=== PATIENT | male | born 1995 | race Caucasian/White ===

== ENCOUNTER 2020-09-26 22:17 | Emergency (ER) | payer OTHER ==
[2020-09-26] MEDS ORDERED: Ondansetron 4 MG/2 ML SDV IVPUSH ONE (22:25)
[2020-09-26] MEDS ORDERED: Sodium Chloride 0.9% 1,000 ML IV ONE ×2 (22:27→23:36)
[2020-09-26] MEDS ORDERED: Acetaminophen 500 MG Tab PO ONE (22:56)
[2020-09-26 23:21] LABS: ANION GAP 15.8 mmol/L (5-15); CHLORIDE,CL 103 mmol/L (98-107); SODIUM,NA 137 mmol/L (136-145)
--- NOTE | 2020-09-27 00:06 | EDM.PDOC ---
ED HPI GENERAL MEDICAL PROBLEM - General Chief Complaint: Abdominal Pain Stated Complaint: N/V, abd pain, muscle aches Time Seen by Provider: 09/26/20 22:40 Source of Information: Reports: Patient History Limitations: Reports: No Limitations - History of Present Illness INITIAL COMMENTS - FREE TEXT/NARRATIVE: 25-year-old male presents to the emergency room with complaints of abdominal pain and diarrhea. His symptoms began a Wednesday night when he started to experience some mild abdominal pain. Wednesday he was experiencing fever and chills with temperature of 101.5. He stayed home from work today and has been taking ibuprofen 400 mg every 4 hours. He reports diarrhea about every 30 minutes today he had one episode of vomiting and felt a nauseous at 7 PM tonight. He has not had appetite he tried some applesauce earlier this evening which he vomited. He describes his abdominal pain is generalized over the belly and sharp pain that comes and goes lasting between 30 seconds and 5 minutes. He has had a previous appendectomy in 2016. He is otherwise a very healthy. He denies any headaches, cough or respiratory complaints. 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 400mg Q4 hrs) Abdomen Pain Score (Numeric/FACES): 8 - Related Data Allergies Allergy/AdvReac Type Severity Reaction Status Date / Time shellfish derived Allergy Swelling Verified 09/26/20 22:20 shrimp Allergy Swelling Verified 09/27/20 00:07 Home Meds: Home Meds Ibuprofen [Motrin] 400 mg PO QID PRN 09/26/20 [History] Past Medical History HEENT History: Reports: Impaired Vision - Infectious Disease History Infectious Disease History: Reports: Chicken Pox, Influenza, Novel Coronavirus - Past Surgical History GI Surgical History: Reports: Appendectomy Social & Family History - Tobacco Use Tobacco Use Status *Q: Never Tobacco User Second Hand Smoke Exposure: No - Caffeine Use Caffeine Use: Reports: Coffee, Soda, Tea - Recreational Drug Use Recreational Drug Use: No ED ROS GENERAL - Review of Systems Review Of Systems: See Below Constitutional: Reports: Fever, Chills, Decreased Appetite HEENT: Reports: No Symptoms Respiratory: Reports: No Symptoms Cardiovascular: Reports: No Symptoms Endocrine: Reports: No Symptoms GI/Abdominal: Reports: Abdominal Pain, Diarrhea, Flatus, Nausea, Vomiting : Reports: No Symptoms Musculoskeletal: Reports: No Symptoms Skin: Reports: No Symptoms Neurological: Reports: No Symptoms Psychiatric: Reports: No Symptoms Hematologic/Lymphatic: Reports: No Symptoms Immunologic: Reports: No Symptoms ED EXAM, GI/ABD - Physical Exam Exam: See Below Exam Limited By: No Limitations General Appearance: Alert, WD/WN, Mild Distress, Obese Eyes: Bilateral: Normal Appearance, EOMI Ears: Normal External Exam, Normal Canal, Hearing Grossly Normal, Normal TMs Nose: Normal Inspection, Normal Mucosa, No Blood Throat/Mouth: Normal Inspection, Normal Lips, Normal Teeth, Normal Gums, Normal Oropharynx, Normal Voice, No Airway Compromise Head: Atraumatic, Normocephalic Neck: Normal Inspection, Supple, Non-Tender, Full Range of Motion Respiratory/Chest: No Respiratory Distress, Lungs Clear, Normal Breath Sounds, No Accessory Muscle Use, Chest Non-Tender Cardiovascular: Normal Peripheral Pulses, Regular Rate, Rhythm, No Edema, No Murmur GI/Abdominal Exam: Normal Bowel Sounds, Soft, Non-Tender. No: Distended, Guarding, Rigid, Rebound Back Exam: Normal Inspection, Full Range of Motion. No: CVA Tenderness (L), CVA Tenderness (R) Extremities: Normal Inspection, Normal Range of Motion, Non-Tender, No Pedal Edema, Normal Capillary Refill Neurological: Alert, Oriented, CN II-XII Intact, Normal Cognition, No Motor/Sensory Deficits Psychiatric: Normal Affect, Normal Mood Skin Exam: Warm, Intact, Normal Color, No Rash Lymphatic: No Adenopathy Course - Vital Signs Last Recorded V/S: Last Vital Signs Temp 97.0 F 09/27/20 01:22 Pulse 94 09/27/20 01:00 Resp 24 H 09/26/20 22:45 BP 100/46 L 09/27/20 01:22 Pulse Ox 96 09/27/20 01:00 - Orders/Labs/Meds Labs: Laboratory Tests 09/26/20 09/26/20 09/26/20 Range/Units 22:35 22:35 22:35 WBC 8.18 (5.00-10.00) 10^3/uL RBC 5.30 (4.50-6.00) 10^6/uL Hgb 15.3 (13.0-17.0) g/dL Hct 44.6 (40.0-52.0) % MCV 84.2 (82.0-92.0) fL MCH 28.9 (27.0-31.0) pg MCHC 34.3 (32.0-36.0) g/dL RDW 13.4 (11.5-14.5) % Plt Count 195 (150-400) 10^3/uL MPV 9.7 (7.4-10.4) fL Add Manual Diff Yes Neutrophils % (Manual) 77 H (50-70) % Band Neutrophils % 9 (4-12) % Monocytes % (Manual) 14 H (2-8) % Absolute Neutrophils 6.30 Band Neutrophils # 0.74 Monocytes # (Manual) 1.15 Sodium 137 (136-145) mmol/L Potassium 3.2 L (3.5-5.1) mmol/L Chloride 103 (98-107) mmol/L Carbon Dioxide 21.4 (21.0-32.0) mmol/L Anion Gap 15.8 H (5-15) mmol/L BUN 18 (7-18) mg/dL Creatinine 1.22 H (0.51-1.17) mg/dL Est Cr Clr Drug Dosing 97.23 mL/min Estimated GFR (MDRD) > 60 mL/min Glucose 123 (70-140) mg/dL Calcium 8.4 L (8.7-10.3) mg/dL Total Bilirubin 1.7 H (0.2-1.0) mg/dL Direct Bilirubin 0.4 H (0.0-0.2) mg/dL Indirect Bilirubin 1.3 mg/dL AST 68 H (15-37) U/L ALT 89 H (14-63) U/L Alkaline Phosphatase 64 (46-116) U/L Total Protein 7.7 (6.4-8.2) g/dL Albumin 4.03 (3.40-5.00) g/dL Globulin 3.67 Albumin/Globulin Ratio 1.09 Specimen Type Urine Color (YELLOW) Urine Appearance (CLEAR) Urine pH (5.0-9.0) Ur Specific [place] (1.005-1.030) Urine Protein (NEGATIVE) mg/dL Urine Glucose (UA) (NEGATIVE) mg/dL Urine Ketones (NEGATIVE) mg/dL Urine Occult Blood (NEGATIVE) Urine Nitrite (NEGATIVE) Urine Bilirubin (NEGATIVE) Urine Urobilinogen (0.2-1.0) E.U./dL Ur Leukocyte Esterase (NEGATIVE) Urine RBC (0-5) /HPF Urine WBC (0-5) /HPF Ur Epithelial Cells /LPF Urine Bacteria (NONE TO FEW) /HPF 09/27/20 Range/Units 01:45 WBC (5.00-10.00) 10^3/uL RBC (4.50-6.00) 10^6/uL Hgb (13.0-17.0) g/dL Hct (40.0-52.0) % MCV (82.0-92.0) fL MCH (27.0-31.0) pg MCHC (32.0-36.0) g/dL RDW (11.5-14.5) % Plt Count (150-400) 10^3/uL MPV (7.4-10.4) fL Add Manual Diff Neutrophils % (Manual) (50-70) % Band Neutrophils % (4-12) % Monocytes % (Manual) (2-8) % Absolute Neutrophils Band Neutrophils # Monocytes # (Manual) Sodium (136-145) mmol/L Potassium (3.5-5.1) mmol/L Chloride (98-107) mmol/L Carbon Dioxide (21.0-32.0) mmol/L Anion Gap (5-15) mmol/L BUN (7-18) mg/dL Creatinine (0.51-1.17) mg/dL Est Cr Clr Drug Dosing mL/min Estimated GFR (MDRD) mL/min Glucose (70-140) mg/dL Calcium (8.7-10.3) mg/dL Total Bilirubin (0.2-1.0) mg/dL Direct Bilirubin (0.0-0.2) mg/dL Indirect Bilirubin mg/dL AST (15-37) U/L ALT (14-63) U/L Alkaline Phosphatase (46-116) U/L Total Protein (6.4-8.2) g/dL Albumin (3.40-5.00) g/dL Globulin Albumin/Globulin Ratio Specimen Type Urinvoid Urine Color Yellow (YELLOW) Urine Appearance Slightly cloudy H (CLEAR) Urine pH 6.0 (5.0-9.0) Ur Specific [place] <= 1.005 (1.005-1.030) Urine Protein 30 H (NEGATIVE) mg/dL Urine Glucose (UA) Negative (NEGATIVE) mg/dL Urine Ketones 40 H (NEGATIVE) mg/dL Urine Occult Blood Negative (NEGATIVE) Urine Nitrite Negative (NEGATIVE) Urine Bilirubin Small H (NEGATIVE) Urine Urobilinogen 1.0 (0.2-1.0) E.U./dL Ur Leukocyte Esterase Negative (NEGATIVE) Urine RBC 0-5 (0-5) /HPF Urine WBC 0-5 (0-5) /HPF Ur Epithelial Cells Few /LPF Urine Bacteria Few (NONE TO FEW) /HPF Meds: Medications Discontinued Medications Generic Name Dose Route Start Last Admin Trade Name Freq PRN Reason Stop Dose Admin Acetaminophen 1,000 mg 09/26/20 22:56 09/26/20 23:02 Acetaminophen 500 Mg Tab PO 09/26/20 22:57 1,000 mg ONETIME ONE Administration Sodium Chloride 1,000 mls @ 999 mls/hr 09/26/20 22:27 09/26/20 22:42 Normal Saline IV 09/26/20 23:27 999 mls/hr .BOLUS ONE Administration Sodium Chloride 1,000 mls @ 1,000 mls/hr 09/26/20 23:36 09/26/20 23:41 Normal Saline IV 09/27/20 00:35 1,000 mls/hr .BOLUS ONE Administration Sodium Chloride 50 mls @ 200 mls/hr 09/27/20 01:00 09/27/20 00:30 Normal Saline IV 200 mls/hr ASDIRECTED JOSTIN Administration Iopamidol 75 ml 09/27/20 00:47 09/27/20 00:30 Iopamidol 755 Mg/Ml 75 Ml Bottle IVPUSH 09/27/20 00:48 75 ml ONETIME ONE Administration Loperamide HCl 4 mg 09/27/20 01:30 09/27/20 01:36 Loperamide 2 Mg Cap PO 09/27/20 01:31 4 mg ONETIME ONE Administration Ondansetron HCl 4 mg 09/26/20 22:25 09/26/20 22:42 Ondansetron 4 Mg/2 Ml Sdv IVPUSH 09/26/20 22:26 4 mg ONETIME ONE Administration - Radiology Interpretation Free Text/Narrative:: CT abdomen and pelvis with IV contrast: Findings; Lung bases; no soft tissue nodule, infiltrate, or pleural effusion. Upper abdomen: The liver, spleen, pancreas and gallbladder are within normal limits. No biliary dilation. Retroperitoneum/pelvis: No adrenal mass. Abdominal aorta is of normal caliber without significant aixa cification change. No pathologic periaortic adenopathy. Kidneys without mass or hydronephrosis no kidney stones. Nondilated uterus. Nondistended urinary bladder. Bowel/mesentery: Liquid stool within the colon which is mildly distended also containing air. No evidence of mass or obstruction. No diverticular disease or inflammation. Appendectomy change. Small bowel loops are nondilated, without evidence of Freddie thickening. No mesenteric mass or pathologic adenopathy. The superior mesenteric artery and vein are patent. No focal gastric abnormality. No free air or fluid. Bone/extraperitoneal soft tissue: Unremarkable lumbar spine and bony pelvis. No acute fracture or destructive process. Extraperitoneal soft tissue of the abdomen and pelvis are unremarkable Impression: 1. Mild distention of the colon containing air and liquid stool. No colonic mass or mural thickening. No small bowel obstruction. 2. No free air or fluid. - Re-Assessments/Exams Free Text/Narrative Re-Assessment/Exam: 09/27/20 00:14 Patient had an IV placed in his left antecubital he had 1 L of normal saline fluids running and a second liter bolus is currently being given. He received 4 mg of IV Zofran. He was given 1000 mg of Tylenol p.o. His temperature is now 99. And he is feeling much better with IV fluids and Zofran. We are going to proceed with a CT with contrast of the abdomen and pelvis as his lab work shows elevated hepatic panel. His white count is normal. Free Text/Narrative Re-Assessment/Exam: 09/27/20 01:39 Continues to feel better. He is afebrile. He received 2 L of fluids. He he denies any nausea. No further episodes of vomiting history. Departure - Departure Time of Disposition: 04:10 Disposition: Home, Self-Care 01 Condition: Good Clinical Impression: Gastroenteritis, Acute dehydration Diarrhea Qualifiers: Diarrhea type: unspecified type Qualified Code(s): R19.7 - Diarrhea, unspecified - Discharge Information Instructions: Viral Gastroenteritis, Adult, [id number] Referrals: Peña Malik MD [Primary Care Provider] - Forms: ED Department Discharge Care Plan Goals: 1. Rest 2. Continue to push oral hydration/fluids. 3. Tylenol 1000 mg every 8 hours as needed for fevers 4. Imodium AD every 4 to 6 hours for symptoms of diarrhea as needed. 5. Follow-up with your primary care 24 to 48 hours if symptoms are persisting. If symptoms worsen return back to the emergency room. Sepsis Event Note (ED) - Evaluation Sepsis Screening Result: Possible Sepsis Risk - Focused Exam Vital Signs: Vital Signs Temp Pulse BP Pulse Ox 09/27/20 01:22 97.0 F 100/46 L 09/27/20 01:00 94 91/35 L 96 09/27/20 00:45 96 96/41 L 95 - Assessment/Plan Assessment:: Diarrhea Gastroenteritis Acute dehydration Plan: 1. Rest 2. Continue to push oral hydration/fluids. 3. Tylenol 1000 mg every 8 hours as needed for fevers 4. Imodium AD every 4 to 6 hours for symptoms of diarrhea as needed. 5. Follow-up with your primary care 24 to 48 hours if symptoms are persisting. If symptoms worsen return back to the emergency room.
[2020-09-27] MEDS ORDERED: Iopamidol 755 Mg/ML 75 ML Bottle IVPUSH ONE (00:47)
[2020-09-27] MEDS ORDERED: Sodium Chloride 0.9% 50 ML IV SCH (01:00)
[2020-09-27] MEDS ORDERED: Loperamide 2 MG Cap PO ONE (01:30)
--- NOTE | 2020-09-27 08:05 | CT ---
[id number] CT/CT Abdomen Pelvis W IV EXAM: ABDOMEN AND PELVIS CT WITH CONTRAST INDICATION: ABDOMEN PAIN, DIARRHEA, FEVER,ELEVATED LIVER PANEL COMPARISON: None. DISCUSSION: The distal small bowel and the proximal colon from the cecum through the splenic flexure fluid-filled and mildly distended. These changes are nonspecific, but could be related to enterocolitis or an ileus. No definite wall thickening or surrounding inflammatory changes. No free air, free fluid or pneumatosis. The appendix is surgically absent. The liver, gallbladder, spleen, pancreas, adrenal glands, kidneys and urinary bladder are unremarkable. No adenopathy. The osseous structures are unremarkable. IMPRESSION: 1. Fluid-filled mildly distended distal small bowel and proximal colon. These changes could be from enterocolitis. Evan Núñez MD 09/27/20 0804 Thank you for allowing us to participate in the care of your patient.
== END 2020-09-27 02:35 | disposition home or self-care (01) ==
LOC: KA.ED 22:17
DX: K52.9 Noninfective gastroenteritis and colitis, unspecified (principal); E86.0 Dehydration; Z91.013 Allergy to seafood
CPT/HCPCS: 36415; 74177; 80048; 80076; 81001; 85025; 96374; 99284; 99284-25; A9270-GY; J2405; J7030; Q9967